=== PATIENT | female | born 1960 | race Caucasian/White ===

== ENCOUNTER 2016-11-26 10:20 | Day surgery (SDC) | payer MEDICARE, SELFPAY ==
[2016-11-25 12:52] LABS: BASOPHILS 0.6 %; BASOPHILS ABSOLUTE 0.05 10/3/uL (0.0-0.16); EOSINOPHILS ABSOLUTE 0.09 10/3/uL (0.0-0.53); IMMATURE GRANULOCYTES 0.2 %; IMMATURE GRANULOCYTES ABSOLUTE 0.02 10/3/uL (0.0-0.11); LYMPHOCYTES ABSOLUTE 1.62 10/3/uL (0.67-4.30); MEAN CORPUS HGB CONC 32.4 g/dL (32.0-36.0); MEAN CORPUSCULAR HEMOGLOB 27.3 pg (26.0-34.0); MEAN CORPUSCULAR VOLUME 84.3 fL (80-100); MONOCYTES 7.1 %; MONOCYTES ABSOLUTE 0.64 10/3/uL (0.21-1.20); NEUTROPHILS 73.1 %; NEUTROPHILS ABSOLUTE 6.58 10/3/uL (2.02-8.40); PLATELET COUNT 237 10/3/uL (150-400); RBC DISTRIBUTION WIDTH 14.1 % (12.0-16.0); RED CELL COUNT 4.39 10/6/uL (4.0-5.6)
[2016-11-25 12:56] LABS: MANUAL DIFF NO %
[2016-11-25 13:04] LABS: A/G RATIO 0.9 (0.7-1.9); ALBUMIN 3.5 G/DL (3.5-5.0); ALKALINE PHOSPHATASE 74 U/L (45-117); BUN (BLOOD UREA NITROGEN) 12 MG/DL (6-23); CALCIUM, SERUM 8.9 MG/DL (8.5-10.4); CHLORIDE, SERUM 106 MMOL/L (96-112); CO2 (CARBON DIOXIDE) 31 MMOL/L (24-34); CREATININE 0.75 MG/DL (0.55-1.02); GFR AFRICAN AMERICAN 104 ML/MIN (>=60); GFR NON AFRICAN AMERICAN 90 ML/MIN (>=60); POTASSIUM, SERUM 3.6 MMOL/L (3.5-5.3); SGOT(AST) 18 U/L (5-40); SGPT(ALT) 29 U/L (5-65); SODIUM, SERUM 142 MMOL/L (135-148); TOTAL BILIRUBIN 0.3 MG/DL (0-1.2); TOTAL PROTEIN 7.5 G/DL (6.0-8.5)
[2016-11-25 13:06] LABS: GLUCOSE, SERUM 106 MG/DL (60-99)
--- NOTE | ~2016-11-26 | OP ---
Record Of Operation [facility] [address] [place]. [address] NAME: JOSE ALFREDO QUINTERO : 62 STATUS : REG [facility] PAT#: [id number] AGE: 56 ADM/REG DATE : 11/26/16 MR#: [id number] REPORT SERV DATE: 11/26/16 DICTATED BY: ADELE THOMPSON JR. DATE: 11/26/16 REPORT STATUS : Draft TRANSCRIBED BY: MODL DATE: 11/26/16 DATE OF PROCEDURE: REASON FOR SURGERY: This 56-year-old patient presents with a mammogram, but essentially has a small area of DCIS biopsy-proven within the right breast. The other calcifications have been reviewed and appeared to be benign. MRI was done for this reason, with no evidence of malignancy. The patient extremely anxious, and has been counseled multiple times, on multiple occasions, by multiple people through the [facility]. I presented her case at our weekly breast conference. The patient is certainly a candidate for breast preservation, but the usual inability determined the extent of margins on DCIS has been related. Nonetheless, segmentectomy with the consideration of postoperative radiation therapy has been agreed upon at this time. PREOPERATIVE DIAGNOSIS: Carcinoma, right breast. POSTOPERATIVE DIAGNOSIS: Carcinoma, right breast. SURGEON: Adele Thompson M.D. SURGERY PERFORMED: Preoperative ultrasound localization followed by right breast segmentectomy. DESCRIPTION OF PROCEDURE: The patient previously underwent ultrasound localization in the [facility]. She was taken to the operating room and under general anesthesia, she was prepped and draped in supine position in usual sterile fashion. A curvilinear incision was made directly over the previously localized site. A vertical dissection was carried down for a 0.5 cm through the fatty tissue and then a three- dimensional excision down to the pectoralis fascia was performed keeping now indurated area center most within the specimen. The specimen in this somewhat thinned breast measured 2.5 cm in thickness and 4 cm in diameter. It was removed and oriented for pathology. I attended the pathology sectioning and the biopsy cavity and clip are indeed within the center most portion of the specimen. The wound was irrigated and hemostasis was obtained. The wound was closed with two layers of Monocryl. The patient tolerated the procedure well without complications. ESTIMATED BLOOD LOSS: 5 mL. SPONGE COUNT: Correct. Record Of Operation [facility] [address] [place]. [address] NAME: JOSE ALFREDO QUINTERO : 62 STATUS : REG [facility] PAT#: [id number] AGE: 56 ADM/REG DATE : 11/26/16 MR#: [id number] REPORT SERV DATE: 11/26/16 DICTATED BY: ADELE THOMPSON JR. DATE: 11/26/16 REPORT STATUS : Draft TRANSCRIBED BY: MODL DATE: 11/26/16 MR/MODL Adele Thompson Jr., M.D. / [id number] CC: Gretchen Nichols Jr., [facility] Candelario Tian Jr., M.D.
[~2016-11-26 10:20] MED LIST: D 5000 PO; DHE1 PO; EXCEDRIN EXTRA1 EACH PO; MAGNESIUM PO; P20 PO
== END 2016-11-26 16:41 | disposition home or self-care (01) ==
LOC: SDC 10:20
PROVIDERS: Surgery Surgical Oncology
PROC: 0HBT0ZZ Excision of Right Breast, Open Approach (ICD-10-PCS; principal; 2016-11-26 11:45)
DX: D05.11 Intraductal carcinoma in situ of right breast (principal); M79.7 Fibromyalgia; K21.9 Gastro-esophageal reflux disease without esophagitis; D64.9 Anemia, unspecified; F32.9 Major depressive disorder, single episode, unspecified; Z87.442 Personal history of urinary calculi; Z88.1 Allergy status to other antibiotic agents; Z88.5 Allergy status to narcotic agent; Z88.8 Allergy status to other drugs, medicaments and biological substances; Z88.6 Allergy status to analgesic agent; Z79.899 Other long term (current) drug therapy
CPT/HCPCS: 71020; 80053; 85025; 88307; 93005; A9270-GY; J0690; J2250; J2270; J2405; J3010